=== PATIENT | female | born 1990 | race Caucasian/White ===

== ENCOUNTER 2017-06-27 19:17 | Emergency (ER) | payer SELFPAY ==
[~2017-06-27] VITALS: Ht 154.9 cm; Wt 93.0 kg
[~2017-06-27 19:17] MED LIST: KEPP10002 PO; LUPR3.75 IM; NORE5TAB PO; PERC7.5T13 PO; Z.0.NO CURRENT MEDS
[2017-06-27 19:29] VITALS: BP 123/58; PULSE 78; RESP 16; TEMP 98; O2SAT 98
--- NOTE | 2017-06-27 19:43 | PD ---
HPI Chief Complaint: Pain: Acute or Chronic Time Seen by Provider: 19:27 Travel History International Travel<30 days: No Contact w/Intl Traveler<30days: No Traveled to known affect area: No History of Present Illness HPI The patient is a 27-year-old female who presents to the emergency department from [facility] emergency department for an ultrasound of the left lower extremity to rule out DVT. The patient states she went to bed feeling fine last night, when she awakened this morning she had pain behind the posterior aspect of the ankle. The pain is worse with weightbearing and movement of the ankle. She denies any known trauma to the affected area and denies any new exercises or excessive walking recently. The patient was seen at [facility] emergency department earlier today, had an x-ray of the left ankle which was unremarkable and referred to the emergency department for an ultrasound. The patient denies any previous history of pulmonary embolism or DVT. She denies any significant swelling in the left lower extremity. She denies any pain at the left hip, left knee, or behind the left knee. She denies any redness or swelling of the left ankle. Symptoms are moderate, worse with weightbearing and movement, and alleviated at rest. PFSH Past Medical History ADHD: No Cancer: Yes (Cervical Cancer) Chemotherapy: Yes (only had to do one round ) Diabetes: Yes Diminished Hearing: No Headaches: Yes Psychiatric: No Migraines: No Seizures: Yes Thyroid Disease: No Ulcer: No ?: Not LMP: 06/22/17 Past Surgical History Appendectomy: No Section: No Cholecystectomy: Yes Hysterectomy: No (scheduled 07/12/17 due to Endometriosis stage 2 & cervical CA) Other Surgery: No Social History Alcohol Use: Yes (rarely) Tobacco Use: Yes (<1/2 PPD) Substance Use: No Allergies-Medications (Allergen,Severity, Reaction): Coded Allergies: bee venom protein (honey bee) (Verified Allergy, Severe, Swelling, 06/27/17) ibuprofen (Verified Allergy, Severe, itchy throat, 06/27/17) tramadol (Verified Allergy, Severe, rash, 06/27/17) Reported Meds & Prescriptions Reported Meds & Active Scripts Active Reported Reglan (Metoclopramide HCl) 10 Mg Tab 10 Mg PO QID Lupron Depot Inj Kit (Leuprolide Acetate) 3.75 Mg Kit 3.75 Mg IM ONCE Percocet (Oxycodone-Acetaminophen) 7.5-325 mg Tab 1 Tab PO Q4H PRN Keppra (Levetiracetam) 1,000 Mg Tab 1,000 Mg PO BID Norethindrone (Norethindrone Acetate) 5 Mg Tab 2.5 Mg PO DAILY Review of Systems Except as stated in HPI: all other systems reviewed are Neg General / Constitutional: No: Fever Musculoskeletal: Positive: Pain, No: Limited ROM, Weakness, Edema Neurologic: No: Paresthesia, Sensory Disturbance Physical Exam Narrative GENERAL: Awake, alert, pleasant 27-year-old female who appears her stated age and is in no acute respiratory distress. SKIN: Focused skin assessment warm/dry. HEAD: Atraumatic. Normocephalic. EYES: No injection or drainage. NECK: Trachea midline. No JVD. MUSCULOSKELETAL: The patient has tenderness of the left Achilles tendon. There is no tenderness of the lateral aspect of the left hip. She is able to flex left hip and the left knee without difficulty. Note pain in the popliteal fossa. Possible left dorsalis pedal pulse. No erythema or swelling noted to the left ankle or left foot. She is able to plantarflex and dorsiflex, however , plantarflexion and dorsiflexion exacerbates her pain. NEUROLOGICAL: Awake and alert. No obvious cranial nerve deficits. Motor grossly within normal limits. Normal speech. Sensation is intact to the medial , lateral, dorsal aspect of the left foot. PSYCHIATRIC: Appropriate mood and affect; insight and judgment normal. Data Data Last Documented VS Vital Signs Date Time Temp Pulse Resp B/P (MAP) Pulse Ox O2 Delivery O2 Flow Rate FiO2 06/27/17 19:29 98.0 78 16 123/58 (79) 98 Orders Orders Us Leg Venous Doppler (06/27/17 ) Prednisone (Deltasone) (06/27/17 19:45) MDM Medical Decision Making Medical Screen Exam Complete: Yes Emergency Medical Condition: Yes Medical Record Reviewed: Yes Interpretation(s) Last Impressions Lower Extremity Ultrasound 06/27/17 0000 Signed Impressions: Service Date/Time: Tuesday, June 27, 2017 20:24 - CONCLUSION: Negative for deep venous thrombosis. Jesus Nicholas MD FACR Differential Diagnosis Differential diagnosis includes Achilles tendinitis, DVT, sprain, strain, fracture, contusion, hematoma, referred pain. Narrative Course I reviewed the patient's EMR, she had Percocet administered for pain at [facility] ER. She also had an x-ray that was negative for fracture that time. Ultrasound was ordered to rule out DVT. The patient was administered prednisone 60 mg orally for possible tendinitis of the left Achilles tendon. Ultrasound is negative for DVT. The patient appears to have tenderness of the Achilles tendon, is advised to have stretching exercises, ice and/or heat, and is she is allergic to NSAIDs, I will place her on a Medrol Dosepak for her inflammation. She is advised to follow-up with a primary physician. Diagnosis Primary Impression: Achilles tendinitis Qualified Codes: M76.62 - Achilles tendinitis, left leg Patient Instructions: General Instructions Additional Instructions: Medrol Dosepak as directed. Ice and/or heat to the affected area. Stretching exercises. Follow-up with your primary physician. Please provide the patient a copy of her x-ray results and ultrasound results at discharge. Med/Other Pt SpecificInfo: Prescription(s) given Scripts Methylprednisolone Dosepak (Medrol Dosepak) 4 Mg Dspk 4 MG PO DIRECTED, #1 DSPK 0 Refills Per Pharmacist direction Prov: Júnior Peters MD 06/27/17 Disposition: DISCHARGE HOME Condition: Stable Júnior Peters MD Jun 27, 2017 19:43
[2017-06-27] MEDS ORDERED: predniSONE 20 MG TAB PO ONE (19:45)
[2017-06-27] MEDS ORDERED: REGL10TA5 PO (19:47)
--- NOTE | 2017-06-27 21:06 | RADRPT ---
EXAM DATE/TIME: 06/27/2017 20:24 [place] COMPARISON: No previous studies available for comparison. INDICATIONS : Left leg pain. MEDICAL HISTORY : Gastroesophageal reflux disease. Seizures. Diabetes. Cervical cancer. Chemotherapy. Headaches. En dometriosis. SURGICAL HISTORY : Cholecystectomy. ENCOUNTER: Initial ACUITY: 2 day PAIN SCORE: 1/10 LOCATION: Left leg. TECHNIQUE: Venous ultrasound of the leg was performed from the inguinal ligament to the proximal calf. Real-yas e, color Doppler and spectral tracing, compression and augmentation techniques were used. FINDINGS: There is normal compressibility of the deep venous system from the inguinal region to the proximal ca lf. No echogenic clot is seen in the lumen of the common femoral, femoral, popliteal, and posterior tibial veins. There is a normal response of the venous system to proximal and distal augmentation an d respiration. CONCLUSION: Negative for deep venous thrombosis. Jesus Nicholas MD FACR on June 27, 2017 at 21:04 Board Certified Radiologist. This report was verified electronically.
[2017-06-27] MEDS ORDERED: MEDR4PAK PO (21:24)
== END 2017-06-27 21:41 | disposition home or self-care (01) ==
LOC: NEPD 19:17
DX: M76.62 Achilles tendinitis, left leg (principal); E11.9 Type 2 diabetes mellitus without complications; Z85.41 Personal history of malignant neoplasm of cervix uteri; Z88.6 Allergy status to analgesic agent
CPT/HCPCS: 73610; 81001; 84703; 93971; 99284; J7512